=== PATIENT | male | born 1955 | race Caucasian/White ===

== ENCOUNTER → 2016-10-05 | Outpatient (CLI) | payer BC ==
[~2016-10-05] MED LIST: ADVIL200 M2 PO; ALEVE PO; ALEVE220 M1 PO; AMLODIPINE BESY10 MG PO; ANTIDIARRHEAL2 MG PO; ASPIRIN81 M1 PO; ASPIRIN81 M2 PO; BENADRYL25 M1 PO; CADUET 10 MG/101 TAB PO; CEFTRIAXONE2 GM IV; CELEXA; COUMADIN5 MG PO; COUMADIN7.5 MG PO; CYANOCOBALAM1000 MCG PO; EFFEXOR XR PO; EFFEXOR75 M1 PO; EFFEXOR75 MG PO; ENFOLAST TABLE1 EACH PO; EPLERENONE25 MG PO; FERROUS GL324 ( 36 ) PO; FLEXERIL PO; HYDROCHLOROTHIA25 MG PO; HYDROCODON-ACE1 EAC7 PO; HYDROCODONE-APA1 T54 PO; IBUPROFEN PM PO; IMODIUM2 MG PO; INDOCIN SR75 MG; INDOCIN SR75 MG PO; INDOMETHACIN25 MG PO; KEFLEX500 MG PO; LANOXIN; LASIX; LASIX PO; LISINOPRIL PO; LORTAB 5/500 TA1 TA1; LORTAB 5/500 TA1 TA2; LOVENOX40 MG/0.4 INJ; METOPROLOL SUCC25 MG PO; MULTI-VITAMIN1 TAB PO; NAPROXEN SODIU220 M1 PO; NEPHROCAPS QT1 EACH PO; NEURONTIN600 MG PO; NORVASC; NORVASC PO; PEPCID AC20 M2 PO; PERCOCET 10/3251 TAB PO; PERCOCET 51 UDTAB 5/ PO; PERCOCET10; PERCOCET10 PO; PERCOCET5/325 PO; PHENERGAN; PROTONIX; SENOKOT S1 TA1 PO; SIMVASTATIN20 MG PO; SLOW FE142 MG PO; SLOW RELEASE I250 M1 PO; SLOW RELEASE IRON; VICODIN 5/1 TAB 5/50 PO; VITAMIN B12; ZOCOR PO; ZYLOPRIM100 MG PO; [UNRECOGNIZED DRUG - OTHER] PO
== END | disposition home or self-care (01) ==
LOC: SVNA 14:11
DX: T84.54XA Infection and inflammatory reaction due to internal left knee prosthesis, initial encounter (principal)
CPT/HCPCS: 85651; 86140

== ENCOUNTER → 2016-10-23 | Outpatient (CLI) | payer BC ==
--- NOTE | ~2016-10-23 | CO ---
Unit #: [id number] #: [id number] Patient: EAN DOYLE JR [id number] [address] [place], [place] [address] [id number] MR#: [id number] NAME: EAN DOYLE JR ROOM: Age: 61 Sex: M Admission Date: 10/23/2016 : 1955 Attending Physician: Hilario Perez M.D. Primary Care Physician: Lyssa Gao M.D. Consultation Date: 10/23/2016 CONSULTATION REPORT REASON FOR CONSULTATION Preoperative medical evaluation prior to re-implant left total knee, scheduled by Dr. Perez for 11/06/2016. HISTORY OF PRESENT ILLNESS The patient is a 61-year-old male, who presents to preprocedural screening for the reasons indicated above. The patient was last evaluated by me in June 2016 for preop evaluation prior to removal of infected left total knee and placement of antibiotic spacer by Dr. Perez. The patient states he completed a total of six weeks of IV antibiotic although he does not know the name of the antibiotic. He complains of left knee pain at this time. Denies fever, chills, nausea, vomiting, or diarrhea. He has chronic edema of the left lower extremity. He denies chest, arm, neck, jaw, back pain or pressure, dyspnea on exertion, shortness of air, paroxysmal nocturnal dyspnea. He is compliant with CPAP for AMIE. Denies lightheadedness, dizziness, presyncope, syncope, and palpitations. He has been evaluated by Dr. Perez and scheduled for the above-referenced procedure. PAST MEDICAL HISTORY 1. Osteoarthritis. 2. Left knee infection with most recent left knee wound culture results, from 07/17/2016, Proteus mirabilis. 3. Recurrent urinary tract infections with most recent culture, from 09/13/2016, positive for Enterobacter cloacae greater than 100,000 CFU/mL. Treated with antibiotic per patient report. 4. Diabetes mellitus, diet controlled. 5. Obstructive sleep apnea compliant with CPAP. 6. Remote history of CHF (2000). 7. Hypertension. 8. Anxiety and depression. 9. Hyperlipidemia. 10. Tinnitus. 11. Chronic anemia, status post gastric bypass. 12. History of MRSA positive nasal screen. 13. Gout. 14. Chronic Coumadin therapy, followed by [facility], with Dr. Perez managing home Coumadin. PAST SURGICAL HISTORY 1. Gastric bypass, 2005. 2. Right total hip arthroplasty. 3. Right foot hammertoe repair. 4. Right rotator cuff repair. Unit #: [id number] #: [id number] Patient: EAN DOYLE JR 5. Revision right hip. 6. Left total knee arthroplasty. 7. Manipulation of the left knee. 8. Left patellar release. 9. Right foot fifth toe bone removal. 10. Urethral dilatation. 11. Removal of left knee hardware and placement of left knee antibiotic spacer. Please note, this patient denies a personal or family history of complications to anesthesia. ALLERGIES Denies latex allergy and medication allergies. CURRENT MEDICATIONS 1. Zestril 40 mg p.o. q.a.m. 2. Simvastatin 20 mg p.o. h.s. 3. Zyloprim 100 mg p.o. q.a.m. 4. Effexor 75 mg p.o. b.i.d. 5. Amlodipine besylate 10 mg p.o. q.a.m. 6. Neurontin 300 mg p.o. b.i.d. 7. Eplerenone 25 mg p.o. q.a.m. 8. Antidiarrheal 2 mg p.o. daily p.r.n. diarrhea. 9. Cyanocobalamin 1000 mcg p.o. daily. 10. Percocet 10/325 mg tablet one p.o. q.4 h. p.r.n. pain. 11. Aspirin 81 mg p.o. daily. 12. Coumadin 7.5 mg p.o. on Sunday, Sunday, Sunday, and Sunday. 13. Coumadin 3.75 mg p.o. on Sunday and Sunday. 14. Hydrochlorothiazide 25 mg p.o. q.a.m. 15. Ferrous gluconate one p.o. daily. SOCIAL HISTORY Denies tobacco use, etoh use and illicit drug use. FAMILY HISTORY Myocardial infarction, cancer, diabetes. REVIEW OF SYSTEMS A 10-point review of systems is conducted and negative except as indicated under history of present illness above. PHYSICAL EXAMINATION VITAL SIGNS: Temperature 99.1, heart rate 70, respirations 20, blood pressure 129/76, oxygen saturation 94% on room air. GENERAL: Patient is a 61-year-old male awake, alert, in no acute distress, sitting in wheelchair with immobilizer on left lower extremity. HEENT: Atraumatic, normocephalic. Sclerae anicteric. No discharge from eyes, ears, or nares. LYMPH: No preauricular, postauricular, tonsillar, submental, anterior, posterior, cervical, supra or infraclavicular adenopathy. ENDOCRINE: No thyromegaly or thyroid nodules or tenderness. LUNGS: Clear to auscultation all becerra bilaterally without wheezes, rhonchi or rales. HEART: S1, S2. Regular rate and rhythm, without murmur or rub. ABDOMEN: Bowel sounds positive x4. Soft, nontender, nondistended. EXTREMITIES: Left lower extremity 1 to 2+ edema. Left lower extremity Unit #: [id number] #: [id number] Patient: EAN DOYLE JR immobilizer on from thigh to ankle. No clubbing. Right lower extremity 1 to 2+ edema without cyanosis or clubbing. Calf is soft and nontender. MUSCULOSKELETAL: Strength 5/5 all extremities bilaterally to flexion and extension with the exception of left lower extremity due to immobilizer. NEUROLOGIC: Alert and oriented x3. Speech clear. Cranial nerves II-XII grossly intact. DIAGNOSTIC STUDIES LABORATORY: WBC 9.9, hemoglobin 12.5, hematocrit 77.1, platelet count 312,000. Sodium 141, potassium 4.6, chloride 105, CO2 is 25, glucose 104, BUN 20, creatinine 1.0, calcium 8.8, AST 17, ALT 15, alkaline phosphatase 120, total bilirubin 0.3, total protein 7.7, albumin 3.7. PT 17.8, INR 1.7. Hemoglobin A1c 5.8. Urinalysis leukocyte esterase 2+, nitrate negative, protein negative, blood trace, rbc's 2-5, wbc's 25-50, bacteria 4+, squamous cells none seen. Urine culture and sensitivity is pending at this time. MRSA nasal screen pending at this time. Sed rate 38 and CRP 1.3. IMAGING: Two-view chest x-ray report, date of study 07/05/2016. Impression: No acute chest finding. CARDIOVASCULAR: 12-lead EKG, date of study 07/05/2016, normal sinus rhythm. Moderate voltage criteria for LVH, may be normal variant, borderline ECG when compared with ECG of 06/09/2013. No significant change was found. ASSESSMENT AND PLAN The patient is a 61-year-old male who presents to preprocedural screening for: 1. Preoperative medical evaluation prior to re-implant left total knee scheduled by Dr. Perez as above. The patient's Mccabe Revised Cardiac Risk Index 1.0 percent secondary to remote history of congestive heart failure. This represents the patient's perioperative risk of cardiac , fatal or nonfatal myocardial infarction, cardiopulmonary arrest, arrhythmia, and/or pulmonary edema. This has been discussed in detail with the patient and he wishes to proceed with surgery as scheduled at this time. 2. Possible urinary tract infection with history of recent and frequent urinary tract infections. For review of the medical records available during the interview today, patient's note states that he was treated and completed Bactrim as of 09/17/2016. Patient's urinalysis was negative for infection at that time based on report in the medical record. The patient is asymptomatic today, however. This does not appear to be a contaminated specimen and I have given him a prescription for levofloxacin 500 mg one p.o. daily for 5 days, #5 with no refills. Patient has been advised to start the antibiotic today. Urine culture and sensitivity is pending at this time and I have ordered a straight cath UA the morning of the surgery. Per review of records in [facility], the patient's last urine culture, dated 09/13/2016, was positive for Enterobacter cloacae greater than 100,000 CFU/mL sensitive to Bactrim DS and levofloxacin. 3. History of Proteus mirabilis left knee infection, status post completion of IV antibiotics per Dr. Perez in consultation with Dr. Pickard per discharge summary, June 2016. The patient does not have a PICC line in place at this time. 4. Diabetes mellitus, diet controlled. Hemoglobin A1c is 5.8 today. 5. Obstructive sleep apnea compliant with CPAP. The patient has been advised to bring his CPAP to the hospital for use on home settings Unit #: [id number] #: [id number] Patient: EAN DOYLE JR when asleep. He has verbalized understanding of this information. 6. Remote history of congestive heart failure (2000). The patient is asymptomatic at this time. 7. Hypertension. Blood pressure stable. Monitor perioperatively and adjust medications accordingly. 8. Anxiety/depression, stable. Continue home medications. 9. Hyperlipidemia. Continue statin. 10. Tinnitus. Stable. 11. Chronic anemia, status post gastric bypass. Continue FeSO4, monitor hemoglobin and hematocrits postoperatively. 12. History of MRSA positive nasal screen. This report is pending at the time. 13. Gout. Continue home dose allopurinol. 14. Chronic Coumadin therapy. Again, [facility] is following the patient and communicating with Dr. Perez for PT/INR and Coumadin management orders. Thank you for allowing us to participate in the care of this patient. We will gladly follow the patient postoperatively medical management pending order of Dr. Perez. Dictated by... Carolyn Puga A.P.R.N. for Elsie Kerr M.D. ANTONIO/ligia TD: 10/23/2016 15:25 JOB #: [id number] CONSULTATION REPORT Page 1 of 1 X Carolyn Puga APRN CONSULTATION REPORT
[2016-10-23 12:46] LABS: HEMATOCRIT 39.9 % (38.0-50.0); HEMOGLOBIN 12.5 gm/dL (13.0-16.0); MEAN CELL VOLUME 77.1 FL (83-96); MEAN CORPUSCULAR HGB CONC 31.2 g/dL (30-36); MEAN PLATELET VOLUME 7.3 FL (6.5-11.5); RED BLOOD COUNT 5.18 X10e (3.90-5.60); RED CELL DISTRIBUTION WIDTH 18.6 % (11.0-15.5); WHITE BLOOD COUNT 9.9 X10e3 (4.0-10.5)
[2016-10-23 12:47] LABS: URINE APPEARANCE CLEAR; URINE BILIRUBIN NEG (NEG); URINE BLOOD TRACE (NEG); URINE COLOR YELLOW; URINE GLUCOSE NEG (NEG); URINE KETONE NEG (NEG); URINE LEUKOCYTE ESTERASE 2+ (NEG); URINE NITRATE NEG (NEG); URINE PH 6.5 (5-8); URINE PROTEIN NEG (NEG); URINE SPECIFIC GRAVITY 1.011 (1.003-1.035); URINE UROBILINOGEN 0.2 MG/DL (NEG)
[2016-10-23 12:49] LABS: CULTURE INDICATED? YES; URINE BACTERIA AUWI 4+ (NEGATIVE); URINE SQUAMOUS EPITHELIAL CELL NONE SEEN /[HPF]; UWBCS1 AUWI 25-50 (0-5)
[2016-10-23 13:05] LABS: INR 1.7; PROTHROMBIN TIME (PATIENT) 17.8 SECONDS (9.6-11.5)
[2016-10-23 13:16] LABS: ALBUMIN SERUM 3.7 g/dL (3.5-5.0); BILIRUBIN,TOTAL 0.3 mg/dL (0.2-2.0); CALCIUM SERUM 8.8 mg/dL (8.4-10.2); GLOM FILT RATE Estimated 81.5 mL/min (>60); POTASSIUM 4.6 mmol/L (3.5-5.1); PROTEIN TOTAL SERUM 7.7 g/dL (6.0-8.3)
== END | disposition home or self-care (01) ==
LOC: CAMB 12:09
PROVIDERS: Orthopaedic Surgery
DX: Z01.818 Encounter for other preprocedural examination (principal)
CPT/HCPCS: 36415; 80053; 81003; 83036; 85027; 85610; 85652; 86140; 86850; 86900; 86901; 87070; 87086; 87088; 87186

== ENCOUNTER 2016-11-06 07:42 | Inpatient (IN) | payer BC ==
--- NOTE | ~2016-11-06 | BMI ---
[facility] Nutrition Therapy DATE: 11/07/16 Patient: EAN CORCORANFFERNANJR Physician: TAHMINA Address: [address] [place] [address] ROAD Room/Bed: [address] [place] [address], Zip: [place] [address] Admit Date: 11/06/16 Date of : [birth year] Height: 6 1.5 Weight: 361 164 HIGH BMI NOTE: DX: 61 yo male admitted for L knee infection ANTHROPOMETRICS: Ht: 6'2" Wt: 164.1 kg (361#) BMI: 46.4 DIET: Consistent carb INTERVENTION: 1. Consistent carb RECOMMENDATIONS: 1. Continue consistent carb diet to promote gradual weight loss towards healthy BMI. RD will f/u per protocol. Respectfully, Gela Starks, Security Dispatcher Enio Pleitez MS, RD, LD [facility] cc: client file
--- NOTE | ~2016-11-06 | DS ---
Unit #: [id number] #: [id number] Patient: EAN DOYLE JR [id number] [address] [address] [id number] MR#: [id number] NAME: EAN DOYLE JR ROOM: 450 Age: 61 Sex: M Admission Date: 11/06/2016 : 1955 Discharge Date: 11/09/2016 Attending Physician: Hilario Perez M.D. Primary Care Physician: Lyssa Gao M.D. DISCHARGE SUMMARY ADMITTING DIAGNOSIS Resolved left knee infection. DISCHARGE DIAGNOSIS Resolved left knee infection. HOSPITAL COURSE On 11/06/2016 Mr Doyle underwent a left total knee reimplant. He tolerated the procedure well. He was transported to the fourth floor where he underwent physical therapy, medical management and anticoagulation therapy. He is doing well and is ready to be discharged. CONDITION UPON DISCHARGE Stable. DISPOSITION Discharge home with [facility] to follow. MEDICATIONS Medications on discharge include his routine home meds, in addition to Percocet 10/325 and Coumadin 10 mg p.o. daily. FOLLOWUP AND INSTRUCTIONS 1. Mr. Doyle is going to be discharged home. 2. The patient is on Coumadin for DVT prophylaxis. PT/INR is to be drawn every Sunday and . Please call the results to our office and ask for Jul. 3. Skin lina are to be discontinued 2 weeks postop. Please apply Steri-Strips 1/4 of an inch apart. 4. White NANCY hose are to be worn during the day and can be removed in the evening. 5. The patient can shower in [address] after seen by Dr. Perez after his 6 week postop appointment. 6. Physical therapy is to be done for active range of motion, strengthening and progressive ambulation. 7. The patient will be on a walker for 4 weeks and a cane for an additional 2 weeks. 8. Followup appointment with Dr. Perez is in 6 weeks. Please call our office for that appointment date and time. Dictated by... Jennifer Villalobos, P.A.C. for Unit #: [id number] #: [id number] Patient: VIVEK,Cristina Luciano JR TD: 11/10/2016 10:29 JOB #: [id number] DISCHARGE SUMMARY Page 1 of 1 X Jennifer Villalobos DISCHARGE SUMMARY
--- NOTE | ~2016-11-06 | OR ---
Unit #: [id number] #: [id number] Patient: EAN DOYLE JR [id number] [address] [place], [place] [address] [id number] MR#: [id number] NAME: EAN DOYLE JR ROOM: [facility] Date of Procedure: 11/06/2016 Admission Date: 11/06/2016 Surgeon: Hilario Perez M.D. : 1955 Attending Physician: Hilario Perez M.D. Primary Care Physician: Lyssa Gao M.D. OPERATIVE REPORT PREOPERATIVE DIAGNOSES Resolved infection, left total knee with retained spacer. POSTOPERATIVE DIAGNOSES Resolved infection, left total knee with retained spacer. PROCEDURE PERFORMED Removal of spacer and conversion to total knee. ASSISTANTS Jennifer Villalobos and Sadiq Gamboa. ANESTHESIA Adductor canal block plus general. ESTIMATED BLOOD LOSS About 300. INDICATIONS FOR PROCEDURE This is a 61-year-old gentleman, who has had a previously infected left total knee. His labs have come down to within normal range and his wound looks good. He is brought to the hospital for reimplantation. DESCRIPTION OF PROCEDURE He was given 3 g of Ancef and 2 g of vancomycin. These will be continued postop, but discontinued, pending cultures. The patient was brought back to the operating room, given a general anesthetic. Tourniquet placed around the left thigh. Left leg was prepped and draped in a sterile fashion. The previous skin incision was opened. Subcutaneous dissected away and a medial arthrotomy was performed. Clear fluid was encountered. This was cultured. We then debrided a large amount of scar tissue from the medial and lateral gutters and the suprapatellar pouch. Eventually, we could sublux the patella laterally. The previous spacer was fragmented with an osteotome and the cement was removed. The knee was flexed and eventually we could get into about 90 to 95 degrees. Further scar tissue was debrided from around the tibia and then the medial and lateral gutters. We then reamed the canal on the femur up to a 22 and used the conical reamer for the [place] femoral sleeve and then the broaches for the [place] femoral sleeves up to a size 46. The patient had the femur sized at a 5. The box cut was made for the TC3 femoral component. After this was done, there was tissue present. It was sent for frozen section. This came back 1 to 2 polys per high-powered field. The cement had been Unit #: [id number] #: [id number] Patient: EAN DOYLE JR removed from the tibia and the canal was reamed up to a 14. The conical reamer was used and then the broaches were used up to a 37. We recut the tibia, it was sized at a 4. We then applied the trials and the knee came to full extension, had good stability with a 10 mm RP TC3 trial insert in both extension and flexion. The patella was cut smooth and then sized at 41. The 3 drill holes were made. All the components were opened. Two packages of cement were mixed. The knee was irrigated and dried. The ropivacaine mixture was injected. The tibia was implanted first cementing under the tray only and then the femur was implanted cementing under the femoral component only. The patient then had the patella cemented into place. The knee was held in extension while the cement hardened. After it was hardened, it was judged that the 10 insert was the appropriate thickness, so the size 5, 10 mm thick TC3 rotating platform insert was positioned in the tibia. The knee was reduced. Stability was appropriate. The tourniquet had been released previously before the implants were positioned to check for posterior bleeding, which there was minimal. It was released. The knee irrigated with Betadine and bacitracin and then closed over a drain. A lateral release was performed and then the patella tracked properly. We then closed the arthrotomy with 0 Ethibond. The subcutaneous was closed with 0 and 2-0 Vicryl and lina in the skin. registered dental assistant rda, Jennifer Villalobos was present throughout the entire case. Dictated by... Cristina Fisher/naye TD: 11/07/2016 03:24 JOB #: [id number] OPERATIVE REPORT Page 1 of 1 X Hilario Perez MD PROCEDURE OPERATIVE NOTE
[~2016-11-06 07:42] MED LIST changes: -PERCOCET10 PO
[2016-11-06 09:03] LABS: URINE APPEARANCE CLEAR; URINE BILIRUBIN NEG (NEG); URINE BLOOD NEG (NEG); URINE COLOR YELLOW; URINE GLUCOSE NEG (NEG); URINE KETONE NEG (NEG); URINE LEUKOCYTE ESTERASE TRACE (NEG); URINE NITRATE NEG (NEG); URINE PH 5.5 (5-8); URINE PROTEIN NEG (NEG); URINE SPECIFIC GRAVITY 1.019 (1.003-1.035); URINE UROBILINOGEN 0.2 MG/DL (NEG)
[2016-11-06 09:04] LABS: U HYALINE CASTS AUWI 0-2 /[LPF]; URBCS1 AUWI 0-2 /[HPF] (0-2); URINE BACTERIA AUWI NEG (NEGATIVE); URINE SQUAMOUS EPITHELIAL CELL NONE SEEN /[HPF]; UWBCS1 AUWI 0-2 (0-5)
[2016-11-06 09:12] LABS: CULTURE INDICATED? NO
[2016-11-06 09:17] LABS: PROTHROMBIN TIME (PATIENT) 10.7 SECONDS (9.6-11.5)
[2016-11-07 02:52] LABS: HEMATOCRIT 34.1 % (38.0-50.0); HEMOGLOBIN 10.5 gm/dL (13.0-16.0)
[2016-11-07 03:04] LABS: INR 1.2; PROTHROMBIN TIME (PATIENT) 13.1 SECONDS (9.6-11.5)
[2016-11-07 03:15] LABS: GLOM FILT RATE Estimated 81.5 mL/min (>60); MAGNESIUM 1.6 mg/dL (1.6-3.0); POTASSIUM 4.9 mmol/L (3.5-5.1)
[2016-11-08 03:39] LABS: HEMATOCRIT 35.6 % (38.0-50.0)
[2016-11-08 03:53] LABS: INR 1.4; PROTHROMBIN TIME (PATIENT) 15.4 SECONDS (9.6-11.5)
[2016-11-08 04:03] LABS: CALCIUM SERUM 8.5 mg/dL (8.4-10.2); GLOM FILT RATE Estimated 81.5 mL/min (>60); MAGNESIUM 1.9 mg/dL (1.6-3.0); POTASSIUM 3.7 mmol/L (3.5-5.1)
[2016-11-09 03:21] LABS: INR 1.5; PROTHROMBIN TIME (PATIENT) 15.5 SECONDS (9.6-11.5)
[2016-11-09 03:41] LABS: BUN/CREATININE RATIO 25.55; CALCIUM SERUM 8.2 mg/dL (8.4-10.2); CREATININE SERUM 0.9 mg/dL (0.6-1.4); GLOM FILT RATE Estimated 92.5 mL/min (>60); MAGNESIUM 1.9 mg/dL (1.6-3.0); POTASSIUM 4.3 mmol/L (3.5-5.1)
[2016-11-09] MEDS ORDERED: PERCOCET10 PO (12:41)
[2016-11-09] MEDS ORDERED: COUMADIN5 MG PO (12:44)
== END 2016-11-09 14:53 | disposition home health service (06) | DRG 467 ==
LOC: CSUR 07:42 → CPACUOF 09:00 → C4B 14:35
PROVIDERS: Nurse Practitioner; Orthopaedic Surgery; Physician Assistant
PROC: 0SRD0J9 Replacement of Left Knee Joint with Synthetic Substitute, Cemented, Open Approach (ICD-10-PCS; 2016-11-06)
PROC: 0SPD08Z Removal of Spacer from Left Knee Joint, Open Approach (ICD-10-PCS; principal; 2016-11-06 09:30)
DX: Z47.33 Aftercare following explantation of knee joint prosthesis (principal); Z68.41 Body mass index [BMI] 40.0-44.9, adult; I10 Essential (primary) hypertension; E11.9 Type 2 diabetes mellitus without complications; F32.9 Major depressive disorder, single episode, unspecified; D64.9 Anemia, unspecified; Z96.641 Presence of right artificial hip joint; E78.5 Hyperlipidemia, unspecified; F41.9 Anxiety disorder, unspecified; E66.9 Obesity, unspecified; G47.33 Obstructive sleep apnea (adult) (pediatric); Z86.14 Personal history of Methicillin resistant Staphylococcus aureus infection; Z79.01 Long term (current) use of anticoagulants; H93.19 Tinnitus, unspecified ear
CPT/HCPCS: 80048; 81003; 82947; 83735; 85014; 85018; 85610; 87070; 87075; 87205; 88305; 88311; 88331; 94760; 94761; 97110; 97116; 97162; 97165; 97530; 97535; C1713; C1776; J0131; J0171; J0690; J0735; J1100; J1170; J1650; J1885; J2250; J2405; J2795; J3010; J3370

== ENCOUNTER → 2016-11-29 | Outpatient (CLI) | payer BC ==
[~2016-11-29] MED LIST changes: +PERCOCET10 PO
== END | disposition home or self-care (01) ==
LOC: SLAB 15:00
PROVIDERS: Orthopaedic Surgery
DX: Z51.81 Encounter for therapeutic drug level monitoring (principal); Z96.652 Presence of left artificial knee joint; Z79.01 Long term (current) use of anticoagulants
CPT/HCPCS: 36415; 85610